=== PATIENT | male | born 1970 ===

== ENCOUNTER 2017-12-17 16:21 | Emergency (ER) | payer SELFPAY ==
[2017-12-17 16:29] VITALS: TEMP 98.2
[2017-12-17] MEDS ORDERED: Acetaminophen-Codeine 300/30 mg Tab PO STA (17:02)
[2017-12-17 17:03] LABS: URINE BILIRUBIN NEGATIVE (NEGATIVE); URINE BLOOD NEGATIVE (NEGATIVE); URINE CLARITY Clear (Clear); URINE COLOR Yellow (YELLOW); URINE GLUCOSE (UA) NORMAL (Normal); URINE LEUKOCYTE ESTERASE NEG Leu/uL (Negative); URINE PROTEIN NEGATIVE (NEGATIVE); URINE UROBILINOGEN NORMAL mg/dL (0.2-1.0)
[2017-12-17] MEDS ORDERED: Acetaminophen-Codeine 300/30 mg Tab PO ONE (17:09)
[2017-12-17 18:12] VITALS: BP 127/86; PULSE 64; RESP 20; O2SAT 100
--- NOTE | 2017-12-17 18:23 | US ---
HISTORY: r/o torsion TECHNIQUE: Realtime sonography through the scrotum with color and doppler flow. COMPARISON: None Available. FINDINGS: RIGHT TESTICLE: Measures 4.9 x 2.6 x 3.3 cm. Normal echotexture and flow. RIGHT EPIDIDYMIS: Epididymal head measures 0.7 x 1.1 x 1.1 cm. Grossly unremarkable appearance with normal flow. LEFT TESTICLE: Measures 4.6 x 1.9 x 2.8 cm. Normal echotexture and flow. LEFT EPIDIDYMIS: Epididymal head measures 1.1 x 0.5 x 1.6 cm. Grossly unremarkable appearance with normal flow. HYDROCELE: Trace bilateral hydroceles. VARICOCELE: Borderline left lateral varicocele. None at the right. OTHER FINDINGS: None. IMPRESSION: No cyst or solid testicular mass identified. No ultrasound evidence of testicular torsion. Trace bilateral hydroceles. Borderline left varicocele.
--- NOTE | 2017-12-17 18:32 | C.PDOC ---
History Of Present Illness 47 y/o male presents to the ER complaining of right testicular pain which has been present for the past 2 days. Patient states that he was seen by his family doctor today and he was referred to the ER for evaluation. Patient denies having penile discharge,trauma, and dysuria. Time Seen by Provider: 12/17/17 16:37 Chief Complaint (Nursing): Male Genitourinary History Per: Patient History/Exam Limitations: no limitations Onset/Duration Of Symptoms: Days Current Symptoms Are (Timing): Still Present Severity: Moderate Past Medical History Reviewed: Historical Data, Nursing Documentation, Vital Signs Vital Signs: Last Vital Signs Temp 98.2 F 12/17/17 16:27 Pulse 64 12/17/17 18:11 Resp 20 12/17/17 18:11 BP 127/86 12/17/17 18:11 Pulse Ox 100 12/17/17 18:47 - Medical History PMH: No Chronic Diseases Surgical History: No Surg Hx Family History: States: No Known Family Hx - Social History Hx Alcohol Use: No Hx Substance Use: No - Immunization History Hx Tetanus Toxoid Vaccination: No Hx Influenza Vaccination: No Hx Pneumococcal Vaccination: No Review Of Systems Except As Marked, All Systems Reviewed And Found Negative. Constitutional: Negative for: Fever, Chills Genitourinary: Positive for: Other (right testicular pain). Negative for: Dysuria, Penile Discharge Physical Exam - Physical Exam Appears: Non-toxic, No Acute Distress Skin: Normal Color, Warm, Dry Head: Atraumatic, Normacephalic Eye(s): bilateral: Normal Inspection Nose: Normal Oral Mucosa: Moist Neck: Supple Chest: Symmetrical Cardiovascular: Rhythm Regular Respiratory: Normal Breath Sounds, No Rales, No Rhonchi, No Wheezing Gastrointestinal/Abdominal: Normal Exam, Soft, No Tenderness Male Genital: Testicular Tenderness (right testicular tenderness), No Testicular Swelling, Circumcised, Other ((-) testicular distention) Neurological/Psych: Oriented x3, Normal Speech ED Course And Treatment O2 Sat by Pulse Oximetry: 100 (RA) Pulse Ox Interpretation: Normal - CT Scan/US US- Testicular Other Rad Studies (CT/US): Read By Radiologist, Radiology Report Reviewed CT/US Interpretation: HISTORY: r/o torsion. TECHNIQUE: Realtime sonography through the scrotum with color and doppler flow. COMPARISON: None Available. FINDINGS: RIGHT TESTICLE: Measures 4.9 x 2.6 x 3.3 cm. Normal echotexture and flow. RIGHT EPIDIDYMIS: Epididymal head measures 0.7 x 1.1 x 1.1 cm. Grossly unremarkable appearance with normal flow. LEFT TESTICLE: Measures 4.6 x 1.9 x 2.8 cm. Normal echotexture and flow. LEFT EPIDIDYMIS: Epididymal head measures 1.1 x 0.5 x 1.6 cm. Grossly unremarkable appearance with normal flow. HYDROCELE: Trace bilateral hydroceles. VARICOCELE: Borderline left lateral varicocele. None at the right. OTHER FINDINGS: None. IMPRESSION: No cyst or solid testicular mass identified. No ultrasound evidence of testicular torsion. Trace bilateral hydroceles. Borderline left varicocele. Medical Decision Making Medical Decision Making: Assessment: Testicular Pain Plan: --Labs -Cipro PO --Motrin PO --US - Testicular Updates: On re-evaluation, patient feels better. Patient has been discharged and instructed to follow up with urologist. Disposition Doctor Will See Patient In The: Hospital Counseled Patient/Family Regarding: Studies Performed, Diagnosis, Need For Followup, Rx Given - Disposition Referrals: Mat Mercedes Jr., MD [Staff Provider] - Disposition: HOME/ ROUTINE Disposition Time: 18:30 Condition: STABLE Additional Instructions: follow up with urology in 2 days call to make an appointment take medications as prescribed return to ER if symptoms worsens or progress Prescriptions: Acetaminophen/Codeine [Tylenol/Codeine 300 MG/30 MG] 1 tab PO Q6H PRN #12 tab PRN Reason: Pain, Severe (8-10) Ciprofloxacin HCl [Cipro] 500 mg PO BID #20 tab Naproxen [Naprosyn] 500 mg PO BID PRN #16 tab PRN Reason: Pain, Moderate (4-7) Instructions: Hydrocele/Varicocele (DC) Forms: Gen Discharge Inst Tongan, [facility] (Tongan) Print Language: CITIZEN OF [place] - Clinical Impression Clinical Impression: Testicular pain, right - Scribe Statement The provider has reviewed the documentation as recorded by the Pricila Rosado Provider Attestation: All medical record entries made by the Scribe were at my direction and personally dictated by me. I have reviewed the chart and agree that the record accurately reflects my personal performance of the history, physical exam, medical decision making, and the department course for this patient. I have also personally directed, reviewed, and agree with the discharge instructions and disposition.
== END 2017-12-17 18:58 | disposition home or self-care (01) ==
LOC: C.ER 16:21
DX: N50.811 Right testicular pain (principal)